=== PATIENT | male | born 1950 | race Caucasian/White ===

== ENCOUNTER 2018-08-23 07:02 | Inpatient (IN) ==
--- NOTE | 2018-08-07 15:05 | Anesthesiology Consultation ---
Date of Service August 07, 2018 Assessment & Plan (1) Encounter for pre-operative examination: Chart Review Chart Review: Acceptable Risk for Surgery (pending surgeon-ordered PCP clearance ) and Patient seen in Pre Admission Testing Teaching & Discussion Instructed NPO after midnight before surgery, except medications with 15 cc of water. Medication instructions provided according to the PAT guidelines. History Surgery Operation Date: 08/23/18 09:35 Proposed Procedures p Left Total Knee Arthroplasty - Chris Ochoa MD Height/Weight Height: 5 ft 8 in Weight: 105.1 kg Allergies Allergy/AdvReac Type Severity Reaction Status Date / Time No Known Allergies Allergy Unknown Verified 07/31/18 12:29 Medications Home Medications Medication Instructions Recorded Confirmed Last Taken aspirin [Aspirin Low Dose] 81 mg PO QAM 07/31/18 07/31/18 Unknown [id number] 149-hyal ac 1 tab PO QAM 07/31/18 07/31/18 Unknown [Glucos Chond Cplx Advanced] magnesium oxide 400 mg PO QAM 07/31/18 07/31/18 Unknown omeprazole magnesium [Prilosec OTC] 20 mg PO QAM 07/31/18 07/31/18 Unknown Past Medical History Medical History GERD (gastroesophageal reflux disease) Obesity Osteoarthritis Past Surgical History Surgical History Hx of colonoscopy Hx of total knee replacement right Past Anesthesia History No Hx of Anesthesia Complications and No Family Hx of Anesthesia Complications History of PONV No Motion Sickness Screening History of Motion Sickness: No Social History Smoking Status: Never smoker Do You Dip or Chew Tobacco: No Hx Alcohol Use: Yes alcohol intake frequency: holidays/special occasions only Alcohol Intake Frequency Comment: rare Hx Substance Use: No Exercise / Class Metabolic Activity II 4-5 Yardwork/Stairs/Walk up hill Review of Systems Pt denies any recent chest pain, shortness of breath, palpitations, cough, fever or URI. Physical Exam Vital Signs BP: 147/91 P: 59 bpm SPO2: 96% RA T: 97.6 F R: 16 ENMT Mouth: no dental restorations, no chipped teeth and no loose teeth Thyromental Distance: > or= 3.5 Finger Breadths (3.5) Mallampati Class: I Neck normal visual inspection; neck extension not limited Respiratory normal respiratory effort Auscultation: lungs clear to auscultation bilaterally Cardiovascular Rate/Rhythm: regular rate and regular rhythm Heart Sounds: no murmur Vessels: no carotid bruit Testing Electrocardiogram Date: 08/07/18 Findings: + NSR @ (61) Chest X-Ray Date: 08/07/18 Findings: + NAD Laboratory Results 08/07/18 15:20 08/07/18 14:49 PT 10.4 Seconds (9.0-12.0) 08/07/18 15:20 INR 1.0 (0.9-1.1) 08/07/18 15:20 APTT 26.1 Seconds (21.0-31.0) 08/07/18 15:20 Hemoglobin A1c 5.6 % (4.5-5.6) 08/07/18 15:20 Urine Color Yellow 08/07/18 Unknown Urine Appearance Clear (Clear) 08/07/18 Unknown Urine pH 7.0 (4.5-7.5) 08/07/18 Unknown Ur Specific [place] 1.012 (1.000-1.030) 08/07/18 Unknown Urine Protein Negative (Negative) 08/07/18 Unknown Urine Glucose (UA) Negative (Negative) 08/07/18 Unknown Urine Ketones Negative (Negative) 08/07/18 Unknown Urine Nitrite Negative (Negative) 08/07/18 Unknown Ur Leukocyte Esterase Negative (Negative) 08/07/18 Unknown
--- NOTE | 2018-08-07 15:17 | PAT Medication Instructions ---
Medication Instructions Date of Service August 07, 2018 Home Medications aspirin [Aspirin Low Dose] 81 mg PO QAM [Glucos Chond Cplx Advanced] 1 tab PO QAM magnesium oxide 400 mg PO QAM omeprazole magnesium [Prilosec OTC] 20 mg PO QAM STOP taking 2 weeks before surgery [Glucos Chond Cplx Advanced] 1 tab PO QAM (STOP 08/09) DO NOT take the morning of surgery magnesium oxide 400 mg PO QAM Take morning of surgery With a small sip of water, OTHERWISE NOTHING TO EAT OR DRINK AFTER MIDNIGHT: aspirin [Aspirin Low Dose] 81 mg PO QAM omeprazole magnesium [Prilosec OTC] 20 mg PO QAM Other Notes If you have any questions please call us at [phone] or [phone] or [phone] or [phone]
[2018-08-07 15:46] LABS: Basophils # (auto) 0.06 K/uL (0-0.2); Eosinophils # (auto) 0.36 K/uL (0-0.5); Eosinophils % (auto) 5.9 %; Hemoglobin 15.7 g/dL (14.0-18.0); Immature Granulocytes # (auto) 0.01 K/uL (0.00-0.02); Immature Granulocytes % (auto) 0.2 %; Lymphocytes # (auto) 1.82 K/uL (1.2-3.4); Lymphocytes % (auto) 29.9 %; Mean Corpuscular Hgb Conc 34.1 g/dL (32-36); Mean Corpuscular Volume 92.9 fL (80-100); Mean Platelet Volume 9.6 fL (7.4-10.4); Monocytes # (auto) 0.61 K/uL (0.11-0.59); Neutrophils # (auto) 3.22 K/uL (1.4-6.5); Platelet Count 228 K/uL (130-400); RDW Coefficient of Variation 12.1 % (11.5-14.5); RDW Standard Deviation 41.2 fL (36.4-46.3); Red Blood Count 4.95 M/uL (4.7-6.1); White Blood Count 6.08 K/uL (4.8-10.8)
--- NOTE | 2018-08-07 15:52 | XRay Report ---
XR chest Pre-admission PA/Lat HISTORY: 67 years-old Male pat preoperative exam. No acute chest complaints reported. COMPARISON: Chest radiographs 08/16/2007 TECHNIQUE: PA and lateral views of the chest FINDINGS: Cardiac silhouette is enlarged, increased in size from comparison study. Opacity of the right cardiop hrenic angle suggests prominent epicardial fat pad. Tortuosity of the descending thoracic aorta. Ther e is no pneumothorax, pleural effusion, focal airspace consolidation or overt pulmonary edema. 8 mm n odular opacity of the left lateral lung bases suggests nipple shadow. Bones of the chest appear grossly intact. IMPRESSION: No acute process. The above report was generated using voice recognition software. It may contain grammatical, syntax o r spelling errors. Electronically signed by: Ethan Walsh M.D. 08/07/2018 3:50 PM
[2018-08-07 15:53] LABS: Albumin Level 4.1 gm/dl (3.4-5.0); BUN Creatinine Ratio 14.3 (10-20); Calcium 9.2 mg/dl (8.5-10.1); Creatinine Clr Calc Pharmacy 75.9 ml/min; Est GFR (African American) 79.2; Est GFR (Non-African American) 68.3; Potassium 4.4 mmol/L (3.5-5.1)
[2018-08-07 16:07] LABS: Partial Thromboplastin Time 26.1 Seconds (21.0-31.0); Prothrombin Time 10.4 Seconds (9.0-12.0)
[2018-08-07 16:14] LABS: Appearance Urine Clear (Clear); Bilirubin Urine Negative (Negative); Color Urine Yellow; Glucose Urine UA Negative (Negative); Ketones Urine Negative (Negative); Leukocyte Esterase Urine Negative (Negative); Nitrite Urine Negative (Negative); Protein Urine Negative (Negative); Specific Gravity Urine 1.012 (1.000-1.030); Urobilinogen Urine Negative (Negative)
[2018-08-08 06:07] LABS: Estimated Average Glucose 114 mg/dl
--- NOTE | 2018-08-22 13:07 | History and Physical Report ---
DATE OF ADMISSION: 08/23/2018 CHIEF COMPLAINT: Left knee pain. HISTORY OF PRESENT ILLNESS: The patient is a 68-year-old gentleman with known osteoarthritis about his left knee. He had a previous right total knee arthroplasty approximately 10 years ago which has done well. He now has ongoing pain and disability with his left knee. He takes naproxen daily. He takes glucosamine chondroitin daily. Due to ongoing pain and disability, he now desires to proceed with left total knee arthroplasty. PAST MEDICAL HISTORY: Osteoarthritis, hyperlipidemia, GERD. PAST SURGICAL HISTORY: Right knee replacement as above. MEDICATIONS: Aspirin 81 mg daily, glucosamine and chondroitin daily, magnesium daily, naproxen twice daily as needed, omeprazole 20 mg daily, tizanidine 4 mg q 8 hours, Zantac 300 mg daily. ALLERGIES: No known drug allergies. SOCIAL HISTORY AND REVIEW OF SYSTEMS: Noncontributory. PHYSICAL EXAMINATION: GENERAL: Well-nourished, well-developed male who appears stated age. HEENT: Normocephalic, atraumatic, extraocular movements intact, oropharynx pink and moist. NECK: Supple without adenopathy. LUNGS: Clear to auscultation bilaterally. HEART: Regular rate and rhythm. ABDOMEN: Soft, nontender, nondistended. EXTREMITIES: The upper extremities are within normal limits. The left knee has a varus alignment. His range of motion is from 0-120 degrees. There is mild crepitus with range of motion. X-RAYS: X-rays were reviewed. He has a varus aligned knee. He has [id number] arthritis of the medial compartment with complete loss of the joint space. There are mild medial joint line osteophytes. There is moderate patellofemoral joint disease with osteophytes as well. ASSESSMENT: Left knee degenerative joint disease. PLAN: Risks versus benefits were discussed. Consent was obtained. The patient's primary care physician is Dr. Daigle. Will proceed with left total knee arthroplasty as indicated.
[~2018-08-23 07:02] MED LIST: ACETAMINOPHEN 500 MG TAB PO SCH; BUPIVACAINE 0.5 % 5 MG/1 ML PF 10ML VIAL ONE; CEFAZOLIN 2000MG 2,000 MG/15 ML SYR IV SCH; CeleBREX 200 MG CAP PO SCH; EPINEPHrine INJ 1 MG/ML AMP ONE; FAMOTIDINE 20 MG TAB PO SCH; GABAPENTIN 300 MG PO SCH; METOCLOPRAMIDE HCL 10 MG TABLET PO SCH; ROPIVACAINE 0.5% 5 MG/ML 30 ML VIAL ONE; ROPIVACAINE 0.5% HCL/PF 150 MG, BUPIVACAINE 0.5% MPF 30 ML, EPINEPHrine 30MG/30ML (OR U... INFIL SCH; TRANEXAMIC ACID 1,000 MG **IV Intra-op IV SCH; TRANEXAMIC ACID 1,000 MG **IV Pre-op IV SCH; dexAMETHasone 4 MG TAB PO SCH
[2018-08-23] MEDS ORDERED: MIDAZOLAM HCL 1 MG/ML 2ML VIAL ONE (07:41)
[2018-08-23] MEDS ORDERED: fentaNYL citrate 100 MCG/2 ML VIAL ONE (07:41)
[2018-08-23] MEDS ORDERED: BACITRACIN INJ 50,000 UNIT VIAL ONE (07:53)
[2018-08-23] MEDS ORDERED: ORTHO JOINT ANESTHETIC ONE (07:53)
[2018-08-23] MEDS ORDERED: POVIDONE-IODINE OP SOLN 30 ML BTL ONE (07:53)
[2018-08-23] MEDS: LR 500ML BOLUS, THEN 15ML/HR IV SCH ×5 (07:55→12:14)
--- NOTE | 2018-08-23 08:14 | History & Physical Bridge Note ---
Date of Service August 23, 2018 History & Physical Bridge Note I have examined the patient, reviewed the History & Physical and in the interval since the performance of the History & Physical I have noted the following changes of clinical significance: no changes noted
[2018-08-23] MEDS ORDERED: MEPERIDINE HCL 25 MG/ML CARP IV PRN (08:21)
[2018-08-23] MEDS ORDERED: ePHEDrine sulfate 50 MG/ML AMP IV PRN (08:21)
[2018-08-23] MEDS ORDERED: LABETALOL HCL IV 5 MG/ML 20ML IV PRN (08:21)
[2018-08-23] MEDS ORDERED: PHENYLEPHRINE 100MCG/ML 5ML SYR IV PRN (08:21)
[2018-08-23] MEDS ORDERED: fentaNYL citrate 100 MCG/2 ML VIAL IV PRN (08:21)
[2018-08-23] MEDS ORDERED: HYDROmorphone INJ 1 MG/ML SYRINGE IV PRN (08:21)
[2018-08-23] MEDS ORDERED: ONDANSETRON INJ 2 MG/ML 2 ML VIAL IV PRN ×2 (08:21→12:07)
[2018-08-23] MEDS ORDERED: ATROPINE SULFATE 0.1 MG/ML 5ML SYR IV PRN (08:21)
--- NOTE | 2018-08-23 10:08 | Operative Report ---
Post Operative Report Date of Surgery August 23, 2018 Pre & Post Diagnosis Operation Date: 08/23/18 09:35 <No data on this case meets the specified criteria> Procedure Operation Date: 08/23/18 09:35 <No data on this case meets the specified criteria> Surgeon Chrsi Ochoa MD Grain Elevator Worker Candace Estimated Blood Loss 10 Findings Consistent with Post-Op Diagnosis Specimens Bone fragments Anesthesia Type Spinal Complications none Disposition Accompanied Patient To Recovery: No Disposition: Recovery Room Indications Knee pain Description of Procedure Patient's left leg was prepped and draped in usual sterile manner. Limb was exsanguinated with an Esmarch bandage and tourniquet was inflated to 200 feet and was mercury. Longitudinal incision was made subcutaneous tissues were sharply dissected electrocautery used for hemostasis. Medium parapatellar incision was made the patella was everted and the knee was flexed flexed. The fat pad was removed in anterior and posterior cruciate ligaments were removed. Proximal motility was osteotomized at the appropriate level using the oscillating saw and the extra medullary alignment guide this was done after clearing the medial face of the tibia with a Bovie and a Schmid elevator. This bone fragment was removed attention was turned to the distal femur where a drill was used to get access to the femoral canal. The T-handle alignment guide was placed in the distal femur was osteotomized and anterior shift of 1-1/ 2 mm was carried out and a size 5 tibia was chosen femur which was incised to be used. The chamfer cuts were made using the appropriate guide and these bone fragments were the notch was cut with the appropriate guide and this bone fragment was removed. The medial and lateral menisci were removed and the trial femoral component was impacted in position. Blunt Hohmann was used to expose the tibia and the proximal tibia was prepared using appropriate appropriate drill punch and mallet. Trial reduction was carried out and a size 9 tibia was chosen size to be 39 patella was used and tracked well. The trial components results were all removed irrigated with pulsatile irrigation and the cement was mixed the femoral component was assembled and the final components were cemented into position. Knee was held in extension while cement hardened periarticular joint mix was utilized Betadine soap was utilized and the wound was closed over Hemovac drain. Extensor mechanism was closed using #1 Vicryl subcutaneous tissue was closed using 0 Dexon skin was closed with is applied. Sterile dressing of Adaptic 4 x 4's sterile umbilicus was applied. Debridement was used through all portions of the case including positioning prepping draping surgical assistance wound closure and dressing application. I attest to the content of the Intraoperative Record and any orders documented therein. Any exceptions are noted below.
--- NOTE | 2018-08-23 11:20 | XRay Report ---
XR knee LT 2V routine CLINICAL HISTORY: Surgical Post Op COMPARISON: None FINDINGS: Alignment of the total left knee arthroplasty is anatomic. There is no fracture or unexpec bijal radiopaque foreign body. Drains are in place. IMPRESSION: Expected findings following total left knee arthroplasty. Electronically signed by: Jose Juan Randolph M.D. 08/23/2018 11:19 AM
--- NOTE | 2018-08-23 11:28 | Anesthesiology Progress Note ---
Date of Service August 23, 2018 Anesthesia Post Procedure Vital Signs Vital Signs: Temp Pulse Pulse Resp BP Pulse Ox 08/23/18 11:15 72 13 110/56 L 93 08/23/18 11:05 76 13 102/57 L 95 08/23/18 10:55 73 12 102/58 L 94 08/23/18 10:45 73 15 108/67 93 08/23/18 10:39 36.3 C L 78 15 105/62 94 08/23/18 07:20 36.7 C 82 16 157/102 H 94 Pain Intensity Left Knee: Pain Intensity: 0 Notes Mental Status: alert / awake / arousable Patient Amnestic to Procedure: Yes Nausea / Vomiting: adequately controlled Pain: adequately controlled Airway Patency, RR, SpO2: stable & adequate BP & HR: stable & adequate Hydration State: stable & adequate Neuraxial Anesthesia: was administered and sensory block is resolving Anesthetic Complications: no major complications apparent and Pt Satisfied with anesthetic care
[2018-08-23] MEDS ORDERED: MoRPHine SULFATE 2 MG/ML CARP IV PRN (12:07)
[2018-08-23] MEDS ORDERED: ALUMINUM/MAGNESIUM SUSP 30 ML UDC PO PRN (12:07)
[2018-08-23] MEDS ORDERED: MAGNESIUM HYDROXIDE SUSP 30 ML UDC PO PRN (12:07)
[2018-08-23] MEDS: SODIUM CHLORIDE 0.9% 1000ML 1,000 ML IV SCH ×2 (13:25→22:14)
[2018-08-23] MEDS: ACETAMINOPHEN 500 MG TAB PO SCH ×2 (13:52→21:18)
[2018-08-23] MEDS: OXYCODONE HCL IR 5 MG TAB (IMMEDIATE RELEASE) PO PRN (18:27)
[2018-08-23] MEDS: CEFAZOLIN 2000MG 2,000 MG/15 ML SYR IV SCH (20:15)
[2018-08-23] MEDS: DOCUSATE SODIUM 100 MG CAP PO SCH (20:22)
[2018-08-23] MEDS: ASPIRIN 81 MG ECTAB PO SCH (20:22)
[2018-08-23] MEDS: CeleBREX 200 MG CAP PO SCH (20:23)
[2018-08-23] MEDS ORDERED: SENNA 8.6 MG TAB PO SCH (21:00)
[2018-08-24] MEDS: OXYCODONE HCL IR 5 MG TAB (IMMEDIATE RELEASE) PO PRN ×2 (03:10→09:52)
[2018-08-24] MEDS: CEFAZOLIN 2000MG 2,000 MG/15 ML SYR IV SCH (04:06)
[2018-08-24] MEDS ORDERED: Nursing to Pharmacy Communication ONE (04:53)
[2018-08-24 07:39] LABS: Hematocrit (blood only) 37.3 % (42-52); Hemoglobin 12.6 g/dL (14.0-18.0); Mean Corpuscular Hgb Conc 33.8 g/dL (32-36); Mean Corpuscular Volume 92.8 fL (80-100); Mean Platelet Volume 9.9 fL (7.4-10.4); Platelet Count 227 K/uL (130-400); RDW Coefficient of Variation 12.5 % (11.5-14.5); RDW Standard Deviation 42.8 fL (36.4-46.3); Red Blood Count 4.02 M/uL (4.7-6.1); White Blood Count 13.41 K/uL (4.8-10.8)
[2018-08-24 08:16] LABS: BUN Creatinine Ratio 18.6 (10-20); Calcium 8.6 mg/dl (8.5-10.1); Creatinine Clr Calc Pharmacy 70.9 ml/min; Est GFR (African American) 74.6; Est GFR (Non-African American) 64.3; Potassium 4.3 mmol/L (3.5-5.1)
[2018-08-24] MEDS: ACETAMINOPHEN 500 MG TAB PO SCH (08:32)
[2018-08-24] MEDS: ASPIRIN 81 MG ECTAB PO SCH (08:33)
[2018-08-24] MEDS: CeleBREX 200 MG CAP PO SCH (08:34)
[2018-08-24] MEDS: DOCUSATE SODIUM 100 MG CAP PO SCH (08:35)
[2018-08-24] MEDS ORDERED: MULTIVITAMIN TAB PO SCH (09:00)
[2018-08-24] MEDS ORDERED: PANTOprazole 40 MG TAB PO SCH (09:00)
--- NOTE | 2018-08-24 10:23 | Progress Note ---
DATE: 08/24/2018 SUBJECTIVE: The patient is postop day 1 status post left total knee arthroplasty. Current vital signs are stable and he is afebrile. He is sitting up in chair eating breakfast and has no complaints. Pain is controlled and he denies shortness of breath, chest pain or lightheadedness. Hemovac drainage amount was 130 mL from 11 to 7 shift. Hemoglobin was 12.6. OBJECTIVE: Dressings were clean, dry and intact. Toes were mobile. Neurovascular was intact. Calves were soft, nontender. ASSESSMENT: Postop day #1 status post left total knee arthroplasty. PLAN: Start PT and OT protocols today. We will continue DVT prophylaxis with aspirin p.o. b.i.d., SCDs and CHARMAINE hose. Continue pain management. If the patient is progressing well with his physical therapy and he is able to get home health services to remove his drain that he could possibly go home today if continues to progress well; however, if not, then we will plan on discharging the following day. Addendum: Pt progressing well with PT. [facility] services authorized and will dc dressing and drain tomorrow. Plan for dc today. YARITZA
--- NOTE | 2018-08-24 10:24 | Anesthesiology Progress Note ---
Date of Service August 24, 2018 Anesthesia Post Procedure Vital Signs Vital Signs: Temp Pulse Pulse Resp BP Pulse Ox 08/24/18 07:58 36.4 C L 62 16 116/84 93 08/24/18 03:18 36.5 C 88 16 124/77 95 08/23/18 23:07 36.7 C 68 16 105/65 92 08/23/18 19:49 36.5 C 79 18 121/72 95 08/23/18 16:01 36.7 C 92 H 17 123/69 93 08/23/18 13:47 90 18 106/70 89 L 08/23/18 12:45 83 18 117/70 92 08/23/18 12:19 76 18 108/66 94 08/23/18 11:45 36.5 C 76 16 111/68 93 08/23/18 11:25 71 18 108/59 L 95 08/23/18 11:15 72 13 110/56 L 93 08/23/18 11:05 76 13 102/57 L 95 08/23/18 10:55 73 12 102/58 L 94 08/23/18 10:45 73 15 108/67 93 08/23/18 10:39 36.3 C L 78 15 105/62 94 Notes Mental Status: alert / awake / arousable and participated in evaluation Patient Amnestic to Procedure: Yes Nausea / Vomiting: adequately controlled Pain: adequately controlled Airway Patency, RR, SpO2: stable & adequate BP & HR: stable & adequate Hydration State: stable & adequate Neuraxial Anesthesia: was administered and sensory block resolved Anesthetic Complications: no major complications apparent and Pt Satisfied with anesthetic care
--- NOTE | 2018-08-24 19:40 | Discharge Summary ---
DISCHARGE DIAGNOSIS: Degenerative joint disease, left knee. SECONDARY DIAGNOSES: Hyperlipidemia and gastroesophageal reflux disease. CONSULTS: None. COMPLICATIONS: None. PROCEDURES: Left total knee arthroplasty performed by Dr. Ochoa on 08/23/2018. BRIEF HISTORY: As dictated in history and physical. HOSPITAL SUMMARY: The patient was admitted on the above-named date and the above-named surgery performed, he tolerated well. On the first postoperative day, he was remaining stable and was sitting up in his chair eating breakfast without complaints. Pain was controlled and Hemovac drains were 130 mL for the 11-7 shift. Hemoglobin was 12.6. Dressings are clean, dry, and intact. Toes were mobile. Neurovascular intact. Calves are soft and nontender. He was started on physical therapy protocol and continued on DVT prophylaxis, and pain management and was continued to progress well. Later that day, he was continuing to remain with good pain control, progressing well with his PT. He had chosen [facility] for physical therapy and the plans were for discharge to home on 08/24/2018 with plans for [facility] to do dressing change and drain removal on 08/25/2018. For further review, please see chart. LABORATORY AND X-RAY DATA: As per chart. DISCHARGE INSTRUCTIONS: The patient was discharged home in satisfactory condition with home health services on 08/24/2018. DIET: Regular. ACTIVITY: Follow [facility] instruction sheets and special care instructions as noted. Follow up with Dr. Ochoa in 2 weeks. The patient to call for appointment if one has not made for. DISCHARGE MEDICATIONS: Acetaminophen 1000 mg p.o. q. 8 hours, aspirin 81 mg p.o. b.i.d., cefadroxil 500 mg p.o. b.i.d., Celebrex 200 mg p.o. b.i.d., oxycodone 5 mg p.o. q. 4 hours p.r.n., sennosides 17.2 mg p.o. at bedtime. Resume home meds as listed and stop taking original aspirin dosage and stop taking glucosamine.
== END 2018-08-24 13:10 | disposition home health service (06) | DRG 470 ==
LOC: ASU 07:02 → 3E 10:48